=== PATIENT | female | born 1965 | race Asian ===

== ENCOUNTER 2017-06-30 23:03 | Emergency (ER) | payer OTHER ==
[~2017-06-30] VITALS: Ht 162.6 cm; Wt 59.9 kg
[2017-06-30 23:16] VITALS: Ht 162.6 cm; Wt 59.9 kg
[2017-07-01 01:50] VITALS: BP 122/75
== END 2017-07-01 01:50 | disposition home or self-care (01) ==
LOC: ED 23:03
DX: J02.9 Acute pharyngitis, unspecified (principal)
CPT/HCPCS: J1100

== ENCOUNTER 2018-04-24 23:54 | Emergency (ER) | payer OTHER ==
[~2018-04-24] VITALS: Ht 165.1 cm; Wt 60.3 kg
[2018-04-25 00:05] VITALS: BP 133/46; Ht 165.1 cm; Wt 60.3 kg
== END 2018-04-25 02:29 | disposition home or self-care (01) ==
LOC: ED 23:54
DX: S80.811A Abrasion, right lower leg, initial encounter (principal); W26.8XXA Contact with other sharp object(s), not elsewhere classified, initial encounter; Y93.89 Activity, other specified; Y92.89 Other specified places as the place of occurrence of the external cause; Y99.8 Other external cause status

== ENCOUNTER 2019-02-14 17:25 | Emergency (ER) | payer OTHER ==
[~2019-02-14] VITALS: Ht 167.6 cm; Wt 57.6 kg
[2019-02-14 18:21] VITALS: Ht 167.6 cm; Wt 57.6 kg
[2019-02-14 20:07] VITALS: BP 127/79
== END 2019-02-14 20:07 | disposition home or self-care (01) ==
LOC: ED 17:25
DX: J20.8 Acute bronchitis due to other specified organisms (principal); R42 Dizziness and giddiness; Z98.890 Other specified postprocedural states

== ENCOUNTER 2020-04-10 17:17 | Emergency (ER) | payer BC ==
[~2020-04-10] VITALS: Ht 160 cm; Wt 62.1 kg
[2020-04-10 17:41] VITALS: Ht 160 cm; Wt 62.1 kg
[2020-04-10 18:52] LABS: BASOPHIL % 0.4 % (0.2-1.3); RED CELL DISTRIBUTION WIDTH 13.7 % (12.3-17.7)
[2020-04-10 18:53] LABS: PLATELET COUNT 476 x10^3mcL (179-408)
[2020-04-10 19:02] LABS: CARBON DIOXIDE 25.4 mmol/L (21-32); CHLORIDE SERUM 100 mmol/L (98-107); CREATININE SERUM 0.8 mg/dL (0.6-1.0); GFR1 > 60 mL/min; GLUCOSE SERUM 112 mg/dL (74-106); POTASSIUM SERUM 3.7 mmol/L (3.5-5.1); SODIUM SERUM 136 mmol/L (136-145)
[2020-04-10 19:05] LABS: UA SPECIFIC GRAVITY 1.025 (1.005-1.035); microscopic required? YES; urine erythrocyte 1+ (NEGATIVE)
[2020-04-10 19:08] LABS: ALKALINE PHOSPHATASE 98 U/L (46-116); ALT/SGPT 41 U/L (14-59); AST/SGOT 47 U/L (15-37); BILIRUBIN TOTAL 0.21 mg/dL (0.20-1.00); LIPASE 196 IU/L (73-393)
[2020-04-10 19:10] LABS: ALBUMIN 3.2 g/dL (3.4-5.0)
[2020-04-10 23:10] VITALS: BP 132/69
[2020-04-12 08:07] LABS: ALPHA FETOPROTEIN TUMOR MARKER 4.1 ng/mL (0.0-8.3)
== END 2020-04-10 23:10 | disposition short-term general hospital (02) ==
LOC: ED 17:17
PROVIDERS: Emergency Medicine
DX: R59.0 Localized enlarged lymph nodes (principal); R18.8 Other ascites; R10.30 Lower abdominal pain, unspecified; Z20.822 Contact with and (suspected) exposure to COVID-19
CPT/HCPCS: J2405; J3010; J7030